=== PATIENT | female | born 1975 | race Caucasian/White ===

== ENCOUNTER 2016-09-18 15:19 | Emergency (ER) | payer MEDICARE, MEDICAID ==
[2016-09-18 15:36] VITALS: BP 129/71
--- NOTE | 2016-09-18 16:03 | EDM.PDOC ---
ED HPI GENERAL MEDICAL PROBLEM - General Chief Complaint: General Stated Complaint: INFECTION IN MOUTH Time Seen by Provider: 09/18/16 15:40 Source of Information: Reports: Patient History Limitations: Reports: No limitations - History of Present Illness INITIAL COMMENTS - FREE TEXT/NARRATIVE: Bella lost a portion of a R lower molar about a month ago, and now has experienced progressive swelling and pain of the R mandible over the past week. She has tried analgesics without benefit. Apparently her insurance limits access to a DDS in this geographic area. Right Lower Oral/Mouth Pain Score (Numeric/FACES): 7 - Related Data Allergies Allergy/AdvReac Type Severity Reaction Status Date / Time amitriptyline Allergy Other Verified 09/18/16 15:37 cefuroxime axetil Allergy Other Verified 09/18/16 15:37 [From Ceftin] lidocaine Allergy Other Verified 09/18/16 15:37 morphine Allergy Other Verified 09/18/16 15:37 prochlorperazine Allergy Other Verified 09/18/16 15:37 [From Compazine] prochlorperazine edisylate Allergy Other Verified 09/18/16 15:37 [From Compazine] prochlorperazine maleate Allergy Other Verified 09/18/16 15:37 [From Compazine] Home Meds: Home Meds Prazosin [Minpress] 3 mg PO DAILY 04/18/16 [History] lamoTRIgine [lamoTRIgine] 200 mg PO DAILY 04/18/16 [History] Clindamycin HCl 150 mg PO QID #20 capsule 09/18/16 [Rx] traMADol [Ultram] 50 mg PO Q4H PRN #20 tab 09/18/16 [Rx] Past Medical History HEENT History: Reports: Impaired vision Other HEENT History: wears glasses 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: , Other (see below) Other OB/BYN History: total historectomy Neurological History: Reports: Headaches, chronic, Migraines Psychiatric History: Reports: Anxiety, Depression, PTSD Dermatologic History: Reports: Psoriasis - Infectious Disease History Infectious Disease History: Reports: Chicken pox - Past Surgical History GI Surgical History: Reports: Appendectomy, Bariatric procedure, Cholecystectomy , Other (see below) Other GI Surgeries/Procedures: ruptured ulcer has had 5 feeding tubes in past Female Surgical History: Reports: Hysterectomy Social & Family History - Family History Family Medical History: Noncontributory - Tobacco Use Smoking Status *Q: Current Every Day Smoker Years of Tobacco use: 30 Packs/Tins Daily: 0.5 Used Tobacco, but Quit: No Second Hand Smoke Exposure: Yes - Caffeine Use Caffeine Use: Reports: Coffee, Soda - Recreational Drug Use Recreational Drug Use: No ED ROS GENERAL - Review of Systems Review Of Systems: See Below Constitutional: Reports: decreased appetite HEENT: Reports: Dental pain Respiratory: Reports: No Symptoms Cardiovascular: Reports: No symptoms Endocrine: Reports: no symptoms GI/Abdominal: Reports: No symptoms Musculoskeletal: Reports: no symptoms Skin: Reports: no symptoms Neurological: Reports: No Symptoms Psychiatric: Reports: No symptoms Hematologic/Lymphatic: Reports: no symptoms Immunologic: Reports: no symptoms ED EXAM, GENERAL - Physical Exam Exam: See Below Exam Limited By: No limitations General Appearance: alert, WD/WN, moderate distress Eye Exam: bilateral eye: normal inspection, PERRL Ears: normal external exam Nose: normal inspection Throat/Mouth: Normal inspection, Normal lips, Normal oropharynx, Normal voice, Other (swelling of #30 with fractured molar) Head: normocephalic, facial swelling (R mandibular swelling and tenderness) Neck: supple, full range of motion, tender lateral (right) Respiratory/Chest: lungs clear Cardiovascular: regular rate, rhythm Back Exam: normal inspection Extremities: normal inspection Neurological: alert, oriented, CN II-XII intact, normal gait Psychiatric: normal affect, normal mood Skin Exam: Warm, Dry Lymphatic: no adenopathy Course - Vital Signs Text/Narrative:: Bella remained stable at the [facility] ED. Last Recorded V/S: Last Vital Signs Temp 36.8 C 09/18/16 15:30 Pulse 95 09/18/16 15:30 Resp 14 09/18/16 15:30 BP 129/71 09/18/16 15:30 Pulse Ox 97 09/18/16 15:30 Departure - Departure Time of Disposition: 16:00 Disposition: Home, Self-Care 01 Condition: fair Clinical Impression: Infected dental caries - Discharge Information Prescriptions: Clindamycin HCl 150 mg PO QID #20 capsule traMADol [Ultram] 50 mg PO Q4H PRN #20 tab PRN Reason: Breakthrough Pain Forms: ED Department Discharge - Problem List & Annotations (1) Infected dental caries SNOMED Code(s): 79578507 Code(s): K02.9 - DENTAL CARIES, UNSPECIFIED; K04.7 - PERIAPICAL ABSCESS WITHOUT SINUS Status: Acute Annotation/Comment:: Infected fractured molar. I dispensed clindamycin 150 mg qid and Tramadol 50 mg q 4hr prn for pain. She needs DDS. - Problem List Review Problem List Initiated/Reviewed/Updated: Yes - Assessment/Plan Plan: Follow up with DDS.
== END 2016-09-18 15:57 | disposition home or self-care (01) ==
LOC: FB.ED 15:19
DX: K02.9 Dental caries, unspecified (principal); F17.210 Nicotine dependence, cigarettes, uncomplicated; F41.9 Anxiety disorder, unspecified; F32.9 Major depressive disorder, single episode, unspecified; L40.9 Psoriasis, unspecified; Z90.49 Acquired absence of other specified parts of digestive tract; Z88.6 Allergy status to analgesic agent; Z88.8 Allergy status to other drugs, medicaments and biological substances; Z79.899 Other long term (current) drug therapy
CPT/HCPCS: 99282; 99283

== ENCOUNTER 2016-11-25 11:19 | Emergency (ER) | payer MEDICARE, MEDICAID ==
[2016-11-25] MEDS ORDERED: Sodium Chloride 0.9% 10 ML Syringe FLUSH PRN (11:38)
[2016-11-25] MEDS ORDERED: Aspirin 81 MG Tab.Chew PO ONE (11:40)
--- NOTE | 2016-11-25 11:46 | EDM.PDOC ---
ED HPI GENERAL MEDICAL PROBLEM - General Chief Complaint: Neuro Symptoms/Deficits Stated Complaint: STROKE Time Seen by Provider: 11/25/16 11:30 Source of Information: Reports: Patient, Old Records History Limitations: Reports: No Limitations - History of Present Illness INITIAL COMMENTS - FREE TEXT/NARRATIVE: 41 yo female 1/2 ppd smoker for over 20 yrs presents on referral from one of the local clinics for L facial and arm numbness as well as inability to extend the left wrist since about 5 pm yesterday. Says she fell asleep in the car and when she awoke she had her current condition and it has not changed since then. Initially thought she had just slept on it wrong, but when it was no better today presented to the clinic. States has no BP, cholesterol or family hx of problems such as CVA. No hx of Afib. No KAMINSKI. Was transiently confused when she awoke from sleeping in the car yesterday. 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 No facial droop or slurred speech. L side of tongue is numb. 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) (none) - Related Data Allergies Allergy/AdvReac Type Severity Reaction Status Date / Time amitriptyline Allergy Other Verified 11/25/16 11:33 cefuroxime axetil Allergy Other Verified 11/25/16 11:33 [From Ceftin] lidocaine Allergy Other Verified 11/25/16 11:33 morphine Allergy Other Verified 11/25/16 11:33 prochlorperazine Allergy Other Verified 11/25/16 11:33 [From Compazine] prochlorperazine edisylate Allergy Other Verified 11/25/16 11:33 [From Compazine] prochlorperazine maleate Allergy Other Verified 11/25/16 11:33 [From Compazine] Home Meds: Home Meds Prazosin [Minpress] 3 mg PO BEDTIME 12/08/16 [History] lamoTRIgine [lamoTRIgine] 200 mg PO BEDTIME 04/18/16 [History] Gabapentin [Neurontin] 600 mg PO BID 11/25/16 [History] OLANZapine [ZyPREXA] 20 mg PO BEDTIME 11/25/16 [History] Ondansetron [Zofran] 4 mg PO Q8H PRN 11/25/16 [History] QUEtiapine [SEROquel] 400 mg PO BEDTIME 11/25/16 [History] SUMAtriptan [Imitrex] 0.5 ml SQ DAILY PRN 11/25/16 [History] Topiramate 200 mg PO BEDTIME 11/25/16 [History] busPIRone [Buspar] 30 mg PO BID 11/25/16 [History] Past Medical History HEENT History: Reports: Impaired Vision Other HEENT History: wears glasses 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: , Other (See Below) Other OB/BYN History: total historectomy Neurological History: Reports: Headaches, Chronic, Migraines Psychiatric History: Reports: Anxiety, Depression, PTSD Dermatologic History: Reports: Psoriasis - Infectious Disease History Infectious Disease History: Reports: Chicken Pox - Past Surgical History GI Surgical History: Reports: Appendectomy, Bariatric Procedure, Cholecystectomy , Other (See Below) Social & Family History - Family History Family Medical History: Noncontributory - Tobacco Use Smoking Status *Q: Current Every Day Smoker Years of Tobacco use: 30 Packs/Tins Daily: 0.5 Used Tobacco, but Quit: No Second Hand Smoke Exposure: Yes - Caffeine Use Caffeine Use: Reports: Coffee, Soda - Recreational Drug Use Recreational Drug Use: No ED ROS GENERAL - Review of Systems Review Of Systems: See Below Constitutional: Reports: No Symptoms HEENT: Reports: No Symptoms Respiratory: Reports: No Symptoms Cardiovascular: Reports: No Symptoms Endocrine: Reports: No Symptoms GI/Abdominal: Reports: No Symptoms : Reports: No Symptoms Musculoskeletal: Reports: No Symptoms Skin: Reports: No Symptoms Neurological: Reports: Confusion (transiently yesterday. ), Numbness (L cheek, L side of tongue, L arm), Weakness (unable to extend at the L wrist.). Denies: Dizziness, Headache, Trouble Speaking, Difficulty Walking Psychiatric: Reports: No Symptoms ED EXAM, NEURO - Physical Exam Exam: See Below Exam Limited By: No Limitations General Appearance: Alert, WD/WN, No Apparent Distress Eye Exam: Bilateral Eye: EOMI, Normal Inspection, PERRL Ears: Normal External Exam, Normal Canal, Hearing Grossly Normal Nose: Normal Inspection, Normal Mucosa, No Blood Throat/Mouth: Normal Inspection, Normal Lips, Normal Oropharynx, Normal Voice, No Airway Compromise Head Exam: Atraumatic, Normocephalic Neck: Normal Inspection, Supple, Other (No carotid bruits) Respiratory/Chest: No Respiratory Distress, Lungs Clear, Normal Breath Sounds, No Accessory Muscle Use Cardiovascular: Regular Rate, Rhythm, No Murmur GI/Abdominal: Soft, Non-Tender Neurological: Alert, Oriented x 3, Other (Subjective numbness of the L side of her face and L arm. Unable to extend at L wrist. 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 Payne) @ 1305h If MRI is negative may need OT referral and/or EMG regarding L hand/wrist dysfunction. Last Recorded V/S: Last Vital Signs Temp 36.7 C 11/25/16 12:11 Pulse 78 11/25/16 13:00 Resp 12 11/25/16 13:00 BP 119/79 11/25/16 13:00 Pulse Ox 100 11/25/16 13:00 - Orders/Labs/Meds Orders: Active Orders 24 hr Category Date Time Status Cardiac Monitoring [RC] .As Directed Care 11/25/16 11:39 Active Brain w wo Cont [MR] Stat Exams 11/25/16 13:11 Taken Head wo Cont [CT] Stat Exams 11/25/16 11:38 Taken Gadobutrol [Gadavist] Med 11/25/16 14:00 Active 10 ml IV . DIRECTED Sodium Chloride 0.9% [Saline Flush] Med 11/25/16 11:38 Active 10 ml FLUSH ASDIRECTED PRN Saline Lock Insert [OM.PC] Routine Oth 11/25/16 11:38 Ordered Medication Orders Gadobutrol (Gadavist) 10 ml IV . DIRECTED [facility] Last Admin: 11/25/16 14:36 Dose: 9 ml Sodium Chloride (Saline Flush) 10 ml FLUSH ASDIRECTED PRN PRN Reason: Keep Vein Open Last Admin: 11/25/16 12:14 Dose: 10 ml Labs: Laboratory Tests 11/25/16 11/25/16 11/25/16 Range/Units 12:00 12:00 12:00 WBC 7.1 (4.5-12.0) X10-3/uL RBC 4.23 (3.23-5.20) x10(6)uL Hgb 11.8 (11.5-15.5) g/dL Hct 35.9 (30.0-51.3) % MCV 84.9 (80-96) fL MCH 27.9 (27.7-33.6) pg MCHC 32.8 (32.2-35.4) g/dL RDW 14.1 (11.5-15.5) % Plt Count 280 (125-369) X10(3)uL Sodium 140 (135-145) mmol/L Potassium 3.7 (3.5-5.3) mmol/L Chloride 112 H (100-110) mmol/L Carbon Dioxide 21 L (23-29) mmol/L BUN 12 (5-20) mg/dL Creatinine 0.7 (0.6-1.3) mg/dL Est Cr Clr Drug Dosing 109.41 mL/min Estimated GFR (MDRD) > 60 (>60) BUN/Creatinine Ratio 17.1 (9-20) Glucose 98 (80-116) mg/dL Calcium 9.3 (8.6-10.2) mg/dL Troponin I < 0.01 L (0.02-0.06) NG/ML Urine Color (YELLOW) Urine Appearance (CLEAR) Urine pH (5.0-6.5) Ur Specific Earle (1.010-1.025) Urine Protein (NEGATIVE) mg/dL Urine Glucose (UA) (NEGATIVE) mg/dL Urine Ketones (NEGATIVE) mg/dL Urine Occult Blood (NEGATIVE) Urine Nitrite (NEGATIVE) Urine Bilirubin (NEGATIVE) Urine Urobilinogen (NEGATIVE) mg/dL Ur Leukocyte Esterase (NEGATIVE) Urine RBC (0) Urine WBC (0) Ur Squamous Epith Cells (NS,R,O) Urine Bacteria (NS) 11/25/16 Range/Units 12:40 WBC (4.5-12.0) X10-3/uL RBC (3.23-5.20) x10(6)uL Hgb (11.5-15.5) g/dL Hct (30.0-51.3) % MCV (80-96) fL MCH (27.7-33.6) pg MCHC (32.2-35.4) g/dL RDW (11.5-15.5) % Plt Count (125-369) X10(3)uL Sodium (135-145) mmol/L Potassium (3.5-5.3) mmol/L Chloride (100-110) mmol/L Carbon Dioxide (23-29) mmol/L BUN (5-20) mg/dL Creatinine (0.6-1.3) mg/dL Est Cr Clr Drug Dosing mL/min Estimated GFR (MDRD) (>60) BUN/Creatinine Ratio (9-20) Glucose (80-116) mg/dL Calcium (8.6-10.2) mg/dL Troponin I (0.02-0.06) NG/ML Urine Color Yellow (YELLOW) Urine Appearance Clear (CLEAR) Urine pH 8.0 H (5.0-6.5) Ur Specific Earle 1.010 (1.010-1.025) Urine Protein Negative (NEGATIVE) mg/dL Urine Glucose (UA) Normal (NEGATIVE) mg/dL Urine Ketones Negative (NEGATIVE) mg/dL Urine Occult Blood Negative (NEGATIVE) Urine Nitrite Negative (NEGATIVE) Urine Bilirubin Negative (NEGATIVE) Urine Urobilinogen Normal (NEGATIVE) mg/dL Ur Leukocyte Esterase Negative (NEGATIVE) Urine RBC 0-5 (0) Urine WBC 0-5 (0) Ur Squamous Epith Cells Moderate H (NS,R,O) Urine Bacteria Few H (NS) Meds: Medications Generic Name Dose Route Start Last Admin Trade Name Freq PRN Reason Stop Dose Admin Gadobutrol 10 ml 11/25/16 14:00 11/25/16 14:36 Gadavist IV 9 ml . DIRECTED MEHRAN Administration Sodium Chloride 10 ml 11/25/16 11:38 11/25/16 12:14 Saline Flush FLUSH 10 ml ASDIRECTED PRN Administration Keep Vein Open Discontinued Medications Generic Name Dose Route Start Last Admin Trade Name Reyes PRN Reason Stop Dose Admin Aspirin 324 mg 11/25/16 11:40 11/25/16 11:52 Aspirin PO 11/25/16 11:41 324 mg ONETIME ONE Administration Departure - Departure Time of Disposition: 14:41 Disposition: Home, Self-Care 01 Condition: Fair Clinical Impression: Focal neurological deficit - Discharge Information Referrals: Rosmery Valverde PA-C [Primary Care Provider] - Forms: ED Department Discharge Care Plan Goals: NO SMOKING. Take an aspirin daily with a meal. Wear your wrist splint at all times except when bathing. Recheck in the clinic as soon as possible to review the results of your MRI and to plan the next step in your care. - My Orders Last 24 Hours: My Active Orders 11/25/16 11:38 Head wo Cont [CT] Stat Sodium Chloride 0.9% [Saline Flush] 10 ml FLUSH ASDIRECTED PRN Saline Lock Insert [OM.PC] Routine 11/25/16 11:39 Cardiac Monitoring [RC] .As Directed 11/25/16 13:11 Brain w wo Cont [MR] Stat 11/25/16 14:00 Gadobutrol [Gadavist] 10 ml IV . DIRECTED - Assessment/Plan Last 24 Hours: My Active Orders 11/25/16 11:38 Head wo Cont [CT] Stat Sodium Chloride 0.9% [Saline Flush] 10 ml FLUSH ASDIRECTED PRN Saline Lock Insert [OM.PC] Routine 11/25/16 11:39 Cardiac Monitoring [RC] .As Directed 11/25/16 13:11 Brain w wo Cont [MR] Stat 11/25/16 14:00 Gadobutrol [Gadavist] 10 ml IV . DIRECTED
[2016-11-25] MEDS ORDERED: Gadobutrol 10 mMOL/10 ML SDV IV SCH (14:00)
[2016-11-25 15:34] VITALS: BP 122/76
--- NOTE | 2016-11-25 16:35 | CT ---
INDICATION: Left arm and face numbness with loss of wrist extension. COMPARISON: None. CT HEAD: TECHNIQUE: Conventional CT head/brain submitted without contrast material administration. FINDINGS: Normal size and configuration of subarachnoid cisterns or ventricles. No focal mass effect, shift of midline structures, extraaxial fluid collections. Partially visualized moderate sized mucus retention cyst versus polyp posterior/ inferior left maxillary sinus. Mild right maxillary sinus mucoperiosteal thickening change. Moderate diffuse sclerosis throughout the right mastoid sinus as well. The remainder of the paranasal sinuses, orbits, and calvarium otherwise unremarkable. IMPRESSION: 1. No evidence of acute hemorrhage or mass effect in the brain. If clinical suspicion persists for otherwise occult cerebral or cerebellar ischemic pathology, then correlation with MRI of the brain would provide optimal evaluation. 2. Mild to moderate chronic sinusitis maxillary sinuses, left greater than right. MTDD
== END 2016-11-25 14:55 | disposition home or self-care (01) ==
LOC: FB.ED 11:19
DX: R29.818 Other symptoms and signs involving the nervous system (principal); H54.7 Unspecified visual loss; F41.9 Anxiety disorder, unspecified; F32.9 Major depressive disorder, single episode, unspecified; F17.210 Nicotine dependence, cigarettes, uncomplicated; Z90.49 Acquired absence of other specified parts of digestive tract; Z98.84 Bariatric surgery status; Z88.8 Allergy status to other drugs, medicaments and biological substances; Z88.5 Allergy status to narcotic agent; Z79.899 Other long term (current) drug therapy
CPT/HCPCS: 36415; 70450; 70553; 80048; 81001; 84484; 85027; 99284; A9270; A9585; J7050

== ENCOUNTER 2017-01-04 19:25 | Emergency (ER) | payer MEDICARE, MEDICAID ==
--- NOTE | 2017-01-04 21:04 | EDM.PDOC ---
ED HPI GENERAL MEDICAL PROBLEM - General Chief Complaint: Abdominal Pain Stated Complaint: LOWER ABDOMINAL PAIN Time Seen by Provider: 01/04/17 19:41 Source of Information: Reports: Patient History Limitations: Reports: No Limitations - History of Present Illness INITIAL COMMENTS - FREE TEXT/NARRATIVE: 41 years old w f come to the ed due to acute onset of pain at her LLQ of her abdomen with dysuria. No trauma, no constipation, hurts more when ambulating. Pt underwent GLORIA. Onset: Today Onset Date: 01/04/17 Onset Time: 07:00 Duration: Hour(s):, Intermittent Location: Reports: Abdomen Quality: Reports: Ache, Burning, Dull Severity: Moderate Improves with: Reports: Rest Context: Reports: Other (unknown) Associated Symptoms: Reports: No Other Symptoms Lower Abdominal Pain Score (Numeric/FACES): 8 - Related Data Allergies Allergy/AdvReac Type Severity Reaction Status Date / Time amitriptyline Allergy Other Verified 01/04/17 19:37 cefuroxime axetil Allergy Other Verified 01/04/17 19:37 [From Ceftin] lidocaine Allergy Other Verified 01/04/17 19:37 morphine Allergy Other Verified 01/04/17 19:37 prochlorperazine Allergy Other Verified 01/04/17 19:37 [From Compazine] prochlorperazine edisylate Allergy Other Verified 01/04/17 19:37 [From Compazine] prochlorperazine maleate Allergy Other Verified 01/04/17 19:37 [From Compazine] Home Meds: Home Meds Prazosin [Minpress] 3 mg PO BEDTIME 04/18/16 [History] lamoTRIgine [lamoTRIgine] 200 mg PO BEDTIME 04/18/16 [History] Gabapentin [Neurontin] 600 mg PO BID 11/25/16 [History] OLANZapine [ZyPREXA] 20 mg PO BEDTIME 11/25/16 [History] Ondansetron [Zofran] 4 mg PO Q8H PRN 11/25/16 [History] QUEtiapine [SEROquel] 400 mg PO BEDTIME 11/25/16 [History] SUMAtriptan [Imitrex] 0.5 ml SQ DAILY PRN 11/25/16 [History] Topiramate 200 mg PO BEDTIME 11/25/16 [History] busPIRone [Buspar] 30 mg PO BID 11/25/16 [History] Acetaminophen/HYDROcodone [[place] 325-5 MG] 1 - 2 tab PO Q6H PRN #12 tab [Rx] buPROPion HCl [Wellbutrin SR] 150 mg PO DAILY 01/04/17 [History] Past Medical History HEENT History: Reports: Impaired Vision Other HEENT History: wears glasses Gastrointestinal History: Reports: Other (See Below) Other Gastrointestinal History: IBS ulcers 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: , Other (See Below) Other OB/BYN History: total histerectomy Neurological History: Reports: Headaches, Chronic, Migraines Psychiatric History: Reports: Anxiety, Depression, PTSD Dermatologic History: Reports: Psoriasis - Infectious Disease History Infectious Disease History: Reports: Chicken Pox - Past Surgical History GI Surgical History: Reports: Appendectomy, Bariatric Procedure, Cholecystectomy , Other (See Below) Female Surgical History: Reports: Hysterectomy Social & Family History - Family History Family Medical History: Noncontributory - Tobacco Use Smoking Status *Q: Current Every Day Smoker Years of Tobacco use: 24 Packs/Tins Daily: 1 Used Tobacco, but Quit: No Second Hand Smoke Exposure: Yes - Caffeine Use Caffeine Use: Reports: Coffee - Recreational Drug Use Recreational Drug Use: Yes Recreational Drug Type: Reports: Marijuana/Hashish Recreational Drug Use Frequency: Socially Recreational Drug Last Use: 12/2016 ED ROS GENERAL - Review of Systems Review Of Systems: See Below Constitutional: Reports: No Symptoms HEENT: Reports: No Symptoms Respiratory: Reports: No Symptoms Cardiovascular: Reports: No Symptoms Endocrine: Reports: No Symptoms GI/Abdominal: Reports: Abdominal Pain (LLQ of abdomen) : Reports: No Symptoms Musculoskeletal: Reports: No Symptoms Skin: Reports: No Symptoms Neurological: Reports: No Symptoms Psychiatric: Reports: No Symptoms Hematologic/Lymphatic: Reports: No Symptoms Immunologic: Reports: No Symptoms ED EXAM, GI/ABD - Physical Exam Exam: See Below Exam Limited By: No Limitations General Appearance: Alert, WD/WN, Mild Distress Eyes: Bilateral: Normal Appearance Ears: Normal External Exam, Normal Canal Nose: Normal Inspection, Normal Mucosa Throat/Mouth: Normal Inspection, Normal Lips Head: Atraumatic, Normocephalic Neck: Normal Inspection, Supple, Non-Tender Respiratory/Chest: No Respiratory Distress, Lungs Clear, Normal Breath Sounds Cardiovascular: Normal Peripheral Pulses, Regular Rate, Rhythm GI/Abdominal Exam: No Distention, No Abnormal Bruit, No Mass, Pelvis Stable, Tender (LLQ of abdomen) (Female) Exam: Deferred Rectal (Female) Exam: Deferred Back Exam: Normal Inspection, Full Range of Motion Extremities: Normal Inspection, Normal Range of Motion, Non-Tender, No Pedal Edema Neurological: Alert, Oriented, CN II-XII Intact, Normal Cognition, Normal Gait, No Motor/Sensory Deficits Psychiatric: Normal Affect, Normal Mood Skin Exam: Warm, Dry, Intact, Normal Color, No Rash Lymphatic: No Adenopathy Course - Vital Signs Text/Narrative:: 41 years old w f come to the ed due to acute onset of pain at her LLQ of her abdomen with dysuria. No trauma, no constipation, hurts more when ambulating. Pt underwent GLORIA. PE: LLQ abd. pain, nl active BS Labs: CBC and BMP and UA nl Imaging: CT abd. pelvis: NAD Impression: Abd. pain, cause not determined Tx: Toradol Reexam: Improved Plan: D/C with instructions. Last Recorded V/S: Last Vital Signs Temp 36.6 C 01/04/17 19:41 Pulse 77 01/04/17 22:51 Resp 14 01/04/17 22:51 BP 104/80 01/04/17 22:51 Pulse Ox 100 01/04/17 22:51 - Orders/Labs/Meds Orders: Active Orders 24 hr Category Date Time Status Abdomen Pelvis w Cont [CT] Stat Exams 01/04/17 20:58 Taken Labs: Laboratory Tests 01/04/17 01/04/17 01/04/17 Range/Units 19:42 21:10 21:10 WBC 6.3 (4.5-12.0) X10-3/uL RBC 4.34 (3.23-5.20) x10(6)uL Hgb 11.8 (11.5-15.5) g/dL Hct 36.1 (30.0-51.3) % MCV 83.2 (80-96) fL MCH 27.1 L (27.7-33.6) pg MCHC 32.6 (32.2-35.4) g/dL RDW 14.8 (11.5-15.5) % Plt Count 278 (125-369) X10(3)uL MPV 8.5 (7.4-10.4) fL Neut % (Auto) 51.9 (46-82) % Lymph % (Auto) 34.6 (13-37) % Kaufman % (Auto) 9.2 (4-12) % Eos % (Auto) 4 (1.0-5.0) % Baso % (Auto) 1 (0-2) % Neut # (Auto) 3.3 (1.6-8.3) # Lymph # (Auto) 2.2 (0.6-5.0) # Kaufman # (Auto) 0.6 (0.0-1.3) # Eos # (Auto) 0.2 (0.0-0.8) # Baso # (Auto) 0.0 (0.0-0.2) # PT 9.9 (8.7-11.1) INR 0.98 (0.89-1.13) Sodium (135-145) mmol/L Potassium (3.5-5.3) mmol/L Chloride (100-110) mmol/L Carbon Dioxide (23-29) mmol/L BUN (5-20) mg/dL Creatinine (0.6-1.3) mg/dL Est Cr Clr Drug Dosing mL/min Estimated GFR (MDRD) (>60) BUN/Creatinine Ratio (9-20) Glucose (80-116) mg/dL Calcium (8.6-10.2) mg/dL Urine Color Yellow (YELLOW) Urine Appearance Clear (CLEAR) Urine pH 6.0 (5.0-6.5) Ur Specific [place] 1.015 (1.010-1.025) Urine Protein Negative (NEGATIVE) mg/dL Urine Glucose (UA) Normal (NEGATIVE) mg/dL Urine Ketones Negative (NEGATIVE) mg/dL Urine Occult Blood Negative (NEGATIVE) Urine Nitrite Negative (NEGATIVE) Urine Bilirubin Negative (NEGATIVE) Urine Urobilinogen Normal (NEGATIVE) mg/dL Ur Leukocyte Esterase Negative (NEGATIVE) Urine RBC 0-5 (0) Urine WBC 0-5 (0) Ur Squamous Epith Cells Moderate H (NS,R,O) Urine Bacteria Few H (NS) 01/04/ Range/Units 21:10 WBC (4.5-12.0) X10-3/uL RBC (3.23-5.20) x10(6)uL Hgb (11.5-15.5) g/dL Hct (30.0-51.3) % MCV (80-96) fL MCH (27.7-33.6) pg MCHC (32.2-35.4) g/dL RDW (11.5-15.5) % Plt Count (125-369) X10(3)uL MPV (7.4-10.4) fL Neut % (Auto) (46-82) % Lymph % (Auto) (13-37) % Kaufman % (Auto) (4-12) % Eos % (Auto) (1.0-5.0) % Baso % (Auto) (0-2) % Neut # (Auto) (1.6-8.3) # Lymph # (Auto) (0.6-5.0) # Kaufman # (Auto) (0.0-1.3) # Eos # (Auto) (0.0-0.8) # Baso # (Auto) (0.0-0.2) # PT (8.7-11.1) INR (0.89-1.13) Sodium 141 (135-145) mmol/L Potassium 3.5 (3.5-5.3) mmol/L Chloride 111 H (100-110) mmol/L Carbon Dioxide 23 (23-29) mmol/L BUN 10 (5-20) mg/dL Creatinine 0.9 (0.6-1.3) mg/dL Est Cr Clr Drug Dosing 82.14 mL/min Estimated GFR (MDRD) > 60 (>60) BUN/Creatinine Ratio 11.1 (9-20) Glucose 97 (80-116) mg/dL Calcium 9.1 (8.6-10.2) mg/dL Urine Color (YELLOW) Urine Appearance (CLEAR) Urine pH (5.0-6.5) Ur Specific [place] (1.010-1.025) Urine Protein (NEGATIVE) mg/dL Urine Glucose (UA) (NEGATIVE) mg/dL Urine Ketones (NEGATIVE) mg/dL Urine Occult Blood (NEGATIVE) Urine Nitrite (NEGATIVE) Urine Bilirubin (NEGATIVE) Urine Urobilinogen (NEGATIVE) mg/dL Ur Leukocyte Esterase (NEGATIVE) Urine RBC (0) Urine WBC (0) Ur Squamous Epith Cells (NS,R,O) Urine Bacteria (NS) Meds: Medications Discontinued Medications Generic Name Dose Route Start Last Admin Trade Name Reyes PRN Reason Stop Dose Admin Iopamidol 100 ml 01/04/17 21:45 01/04/17 23:03 Isovue-370 (76%) IV 01/04/17 21:46 100 ml . DIRECTED ONE Administration Ketorolac Tromethamine 30 mg 01/04/17 23:28 01/04/17 23:34 Toradol IVPUSH 01/04/17 23:29 30 mg ONETIME ONE Administration Departure - Departure Time of Disposition: 23:53 Disposition: Home, Self-Care 01 Condition: Good Clinical Impression: Abdominal pain, acute, left lower quadrant - Discharge Information Prescriptions: Acetaminophen/HYDROcodone [[place] 325-5 MG] 1 - 2 tab PO Q6H PRN #12 tab PRN Reason: for severe pain only Referrals: Rosmery Valverde PA-C [Primary Care Provider] - Forms: ED Department Discharge Additional Instructions: no cause of your abdominal pain could be found. Please take norco for severe pain, please f/u with your PMD. Please came to the ed if your symptoms get worse acutely - My Orders Last 24 Hours: My Active Orders 01/04/17 20:58 Abdomen Pelvis w Cont [CT] Stat - Assessment/Plan Last 24 Hours: My Active Orders 01/04/17 20:58 Abdomen Pelvis w Cont [CT] Stat
[2017-01-04] MEDS ORDERED: Iopamidol 755 Mg/ML 100 ML Bottle IV ONE (21:45)
[2017-01-04 22:52] VITALS: BP 104/80
[2017-01-04] MEDS ORDERED: Ketorolac 30 MG/ML SDV IVPUSH ONE (23:28)
== END 2017-01-05 00:05 | disposition home or self-care (01) ==
LOC: FB.ED 19:25
DX: R10.32 Left lower quadrant pain (principal); G43.909 Migraine, unspecified, not intractable, without status migrainosus; F32.9 Major depressive disorder, single episode, unspecified; F17.210 Nicotine dependence, cigarettes, uncomplicated; F41.9 Anxiety disorder, unspecified; Z90.710 Acquired absence of both cervix and uterus; Z90.49 Acquired absence of other specified parts of digestive tract; Z90.89 Acquired absence of other organs; Z88.6 Allergy status to analgesic agent; Z88.8 Allergy status to other drugs, medicaments and biological substances; Z79.899 Other long term (current) drug therapy
CPT/HCPCS: 36415; 74177; 80048; 81001; 85025; 85610; 96374; 99284; J1885; Q9967; 99283

== ENCOUNTER 2018-04-30 19:27 | Emergency (ER) | payer MEDICAID, MEDICARE, SELFPAY ==
[2018-04-30] MEDS ORDERED: Amoxicillin/Clavulanate K 875-125 MG Tab PO ONE (20:26)
[2018-04-30] MEDS ORDERED: Diphtheria,Pertussis(Acell),Tetanus Vaccine 0.5 ML SDV IM ONE (20:33)
--- NOTE | 2018-04-30 20:33 | EDM.PDOC ---
ED HPI GENERAL MEDICAL PROBLEM - General Chief Complaint: Bite:Animal, Insect Stated Complaint: DOG BITE Time Seen by Provider: 04/30/18 19:40 Source of Information: Reports: Patient History Limitations: Reports: No Limitations - History of Present Illness INITIAL COMMENTS - FREE TEXT/NARRATIVE: This pleasant 43-year-old with history of migraine, anxiety attacks, depression , psoriasis and PTSD (for which uses prazosin) this evening after having been bitten last hour by her Pit bulldog. Was caring for her sounds dark and that dog got in a fight with her dog. Patient has a multiple bite lacerations of her non dominant left hand as she tried to tried to remove her fighting [facility] Pain Score (Numeric/FACES): 8 - Related Data Allergies Allergy/AdvReac Type Severity Reaction Status Date / Time amitriptyline Allergy Other Verified 04/30/18 19:44 cefuroxime axetil Allergy Other Verified 04/30/18 19:44 [From Ceftin] lidocaine Allergy Other Verified 04/30/18 19:44 morphine Allergy Other Verified 04/30/18 19:44 prochlorperazine Allergy Other Verified 04/30/18 19:44 [From Compazine] prochlorperazine edisylate Allergy Other Verified 04/30/18 19:44 [From Compazine] prochlorperazine maleate Allergy Other Verified 04/30/18 19:44 [From Compazine] Home Meds: Home Meds Prazosin [Minpress] 3 mg PO BEDTIME 04/18/16 [History] lamoTRIgine 200 mg PO BEDTIME 04/18/16 [History] Gabapentin [Neurontin] 600 mg PO BID 11/25/16 [History] OLANZapine [ZyPREXA] 20 mg PO BEDTIME 11/25/16 [History] Ondansetron [Zofran] 4 mg PO Q8H PRN 11/25/16 [History] QUEtiapine [SEROquel] 400 mg PO BEDTIME 11/25/16 [History] SUMAtriptan [Imitrex] 0.5 ml SQ DAILY PRN 11/25/16 [History] Topiramate 200 mg PO BEDTIME 11/25/16 [History] busPIRone [Buspar] 30 mg PO BID 07/17/17 [History] buPROPion HCl [Wellbutrin SR] 150 mg PO DAILY 01/04/17 [History] ALPRAZolam [Xanax] 1 mg PO TID 04/30/18 [History] Amoxicillin/Clavulanate K [Augmentin 875-125 MG] 1 tab PO BID #20 tablet [Rx] Past Medical History HEENT History: Reports: Impaired Vision Other HEENT History: wears glasses Gastrointestinal History: Reports: Other (See Below) Other Gastrointestinal History: IBS ulcers 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: , 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 (See Below) 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 Neurological History: Reports: Headaches, Chronic, Migraines Psychiatric History: Reports: Anxiety, Depression, PTSD Dermatologic History: Reports: Psoriasis - Infectious Disease History Infectious Disease History: Reports: Chicken Pox - Past Surgical History GI Surgical History: Reports: Appendectomy, Bariatric Procedure, Cholecystectomy , Other (See Below) Female Surgical History: Reports: Hysterectomy Social & Family History - Family History Family Medical History: Noncontributory - Tobacco Use Smoking Status *Q: Current Every Day Smoker Years of Tobacco use: 26 Packs/Tins Daily: 1 - Caffeine Use Caffeine Use: Reports: Coffee - Recreational Drug Use Recreational Drug Use: No ED ROS GENERAL - Review of Systems Review Of Systems: ROS reveals no pertinent complaints other than HPI. ED EXAM, ANIMAL BITE - Physical Exam Exam: See Below Text/Narrative:: Patient is mildly uncomfortable with the [place] bites on her left nondominant hand involving the thenar eminence and dorsum of the proximal first metacarpal Exam Limited By: No Limitations General Appearance: Alert, WD/WN, Mild Distress, Moderate Distress Eye Exam: Bilateral Eye: Normal Inspection Ears: Normal External Exam, Normal Canal Nose: Normal Inspection, Normal Mucosa Throat/Mouth: Normal Inspection, Normal Lips, Normal Teeth, Normal Gums, Normal Oropharynx, Normal Voice Head: Atraumatic, Normocephalic Neck: Normal Inspection, Supple, Non-Tender, Full Range of Motion Respiratory/Chest: No Respiratory Distress, Lungs Clear, Normal Breath Sounds, No Accessory Muscle Use, Chest Non-Tender Cardiovascular: Normal Peripheral Pulses, Regular Rate, Rhythm, No Edema, No Gallop, No JVD, No Murmur, No Rub Peripheral Pulses: 1+: Brachial (L) (Normal capillary fill of fingers), Brachial (R) GI/Abdominal: Normal Bowel Sounds, Soft, Non-Tender, No Organomegaly, No Distention, No Abnormal Bruit, No Mass (Female) Exam: Deferred Rectal (Female) Exam: Deferred Extremities: Normal Inspection, Other ( left hand thenar eminence puncture wounds noted. Also multiple bite prabhakar dorsal first metacarpal dermis of the hand. The thenar bites have penetrated through the dermis. The multiple Dorsal bites of the first metacarpal are very superficial. The thenar eminence is moderately swollen and markedly tender to the touch. No linear angitis. No compromise ulnar or radial pulse. No compromise range of motion of fingers.) Neurological: Alert, Oriented, CN II-XII Intact, Normal Cognition, Normal Gait, Normal Reflexes, No Motor/Sensory Deficits Psychiatric: Normal Affect Skin Exam: Normal Color, Warm/Dry Lymphatic: No Adenopathy Course - Vital Signs Last Recorded V/S: Last Vital Signs Temp 36.6 C 04/30/18 19:27 Pulse 89 04/30/18 19:27 Resp 18 04/30/18 19:27 BP 125/69 04/30/18 19:27 Pulse Ox 99 04/30/18 19:27 - Orders/Labs/Meds Orders: Active Orders 24 hr Category Date Time Status Vaccines to be Administered [RC] PER UNIT ROUTINE Care 04/30/18 20:33 Active Meds: Medications Discontinued Medications Generic Name Dose Route Start Last Admin Trade Name Freq PRN Reason Stop Dose Admin Amoxicillin/Clavulanate Potassium 1 tab 04/30/18 20:26 04/30/18 20:43 Augmentin 875 Mg/125 Mg PO 04/30/18 20:27 1 tab ONETIME ONE Administration Diphtheria/Tetanus/Acell Pertussis 0.5 ml 04/30/18 20:33 04/30/18 20:43 Adacel IM 04/30/18 20:34 0.5 ml .ONCE ONE Administration Departure - Departure Time of Disposition: 20:00 (Symptoms multiple dog bite teeth entries her left thenar eminence and left dorsum of her hand. She has dysesthesia of the left thenar eminence left index and long finger. Most of the dysesthesia and is most notable the left thumb tip approximately 1 cm x 3 mm.) Disposition: Home, Self-Care 01 Condition: Good Clinical Impression: Dog bite of extremity, Anxiety, Psoriasis Depression Qualifiers: Depression Type: dysthymia Qualified Code(s): F34.1 - Dysthymic disorder - Discharge Information *PRESCRIPTION DRUG MONITORING PROGRAM REVIEWED*: Not Applicable *COPY OF PRESCRIPTION DRUG MONITORING REPORT IN PATIENT ANIBAL: Not Applicable Prescriptions: Amoxicillin/Clavulanate K [Augmentin 875-125 MG] 1 tab PO BID #20 tablet Instructions: Animal Bite, [id number], Amoxicillin; Clavulanic Acid oral suspension Referrals: Rosmery Valverde PA-C [Primary Care Provider] - Forms: ED Department Discharge Additional Instructions: dx dog bite with sensory nerve injury from the crush effect of gthe pit bull bite on your left hand with early suggestion of sensory irritation of the median nerve branch to the left thumb tip, left index and long finger at present there is no suggestion of infection treat potential infection with Augmentin 875 mg twice a day for 10 days use cold pack to decrease the swelling follow up with your MD 1 week earlier if worse elevate your hand above your heart to decrease the swelling - My Orders Last 24 Hours: My Active Orders 04/30/18 20:33 Vaccines to be Administered [RC] PER UNIT ROUTINE - Assessment/Plan Last 24 Hours: My Active Orders 04/30/18 20:33 Vaccines to be Administered [RC] PER UNIT ROUTINE
[2018-04-30 21:46] VITALS: BP 112/76
== END 2018-04-30 21:03 | disposition home or self-care (01) ==
LOC: FB.ED 19:27
DX: S61.452A Open bite of left hand, initial encounter (principal); S61.432A Puncture wound without foreign body of left hand, initial encounter; F34.1 Dysthymic disorder; F41.9 Anxiety disorder, unspecified; L40.9 Psoriasis, unspecified; Z88.1 Allergy status to other antibiotic agents; Z88.8 Allergy status to other drugs, medicaments and biological substances; Z88.5 Allergy status to narcotic agent; Z23 Encounter for immunization; F17.210 Nicotine dependence, cigarettes, uncomplicated; W54.0XXA Bitten by dog, initial encounter
CPT/HCPCS: 90471; 90715; 99283; A9270; 90472

== ENCOUNTER 2018-10-28 08:08 | Day surgery (SDC) | payer MEDICARE ==
[2018-10-28] MEDS ORDERED: Midazolam 1 MG/ML 2 ML SDV IV ONE (08:09)
[2018-10-28] MEDS ORDERED: Propofol 200 MG/20 ML SDV IV ONE (08:09)
[2018-10-28] MEDS ORDERED: Lidocaine 2% 100 MG/5 ML Syringe IVPUSH ONE (08:09)
[2018-10-28] MEDS ORDERED: Lactated Ringers 1,000 ML IV SCH (08:30)
--- NOTE | 2018-10-28 09:57 | PCM.OPNOTE ---
- General Post-Op/Procedure Note Date of Surgery/Procedure: 10/28/18 Operative Procedure(s): egd with bx Findings: gastric pouch inflammation Pre Op Diagnosis: epigastric pain Post-Op Diagnosis: pouchitis Anesthesia Technique: TERE Primary Surgeon: Akash Kang Anesthesia Provider: Jeniffer Jones Pathology: gastric pouch Complications: None Condition: Good Free Text/Narrative:: see egd
[2018-10-28 10:28] VITALS: BP 110/76
--- NOTE | 2018-10-28 11:36 | OR ---
DATE OF OPERATION: 10/28/2018 SURGEON: Akash Kang MD PROCEDURE PERFORMED: Esophagogastroduodenoscopy with cold forceps biopsy. PREOPERATIVE DIAGNOSIS: Epigastric abdominal pain. POSTOPERATIVE DIAGNOSIS: Pouchitis. INDICATIONS FOR PROCEDURE: This is a 43-year-old white female who is status post a gastrojejunostomy for morbid obesity, has a history of epigastric abdominal pain, has a history of ulcerations in the past. She was offered and accepted an esophagogastroduodenoscopy. DESCRIPTION OF OPERATION: After an excellent sedation was administered, the bite block was inserted. The flexible endoscope was passed without difficulty down the patient's esophagus and into the gastric pouch. Gastric pouch was insufflated and the gastric pouch and jejunum were inspected. The following findings were noted. The jejunum was unremarkable. In the area, however, of the anastomosis, there was some inflammation. Biopsies were taken. There was also some evidence of inflammation in the pouch itself and biopsies were taken. The esophagus was unremarkable. The patient tolerated the procedure well and was taken to recovery. Results by letter. /[id number] /MODL
== END 2018-10-28 10:23 | disposition home or self-care (01) ==
LOC: FB.SDS 08:08
PROVIDERS: ATTEND Surgery
DX: K95.89 Other complications of other bariatric procedure (principal); K21.9 Gastro-esophageal reflux disease without esophagitis; D50.9 Iron deficiency anemia, unspecified; G43.909 Migraine, unspecified, not intractable, without status migrainosus; F33.9 Major depressive disorder, recurrent, unspecified; F41.9 Anxiety disorder, unspecified; M19.90 Unspecified osteoarthritis, unspecified site; F17.210 Nicotine dependence, cigarettes, uncomplicated; E66.9 Obesity, unspecified; Z68.34 Body mass index [BMI] 34.0-34.9, adult; Z79.899 Other long term (current) drug therapy; Z88.4 Allergy status to anesthetic agent; Z88.1 Allergy status to other antibiotic agents; Z88.5 Allergy status to narcotic agent; Z88.8 Allergy status to other drugs, medicaments and biological substances; Z98.890 Other specified postprocedural states
CPT/HCPCS: 00731-QZ; 88305; 88342; J2001; J2250; J2704; J7120

== ENCOUNTER 2018-12-16 17:56 | Emergency (ER) | payer MEDICARE ==
[2018-12-16] MEDS ORDERED: Ondansetron 4 MG/2 ML SDV IVPUSH ONE (18:03)
[2018-12-16] MEDS ORDERED: Ketorolac 30 MG/ML SDV IVPUSH ONE (18:03)
[2018-12-16] MEDS: Sodium Chloride 0.9% 10 ML Syringe FLUSH PRN ×2 (18:15→19:50)
[2018-12-16 18:40] VITALS: BP 128/84; PULSE 90
[2018-12-16] MEDS ORDERED: Metoclopramide 10 MG/2 ML SDV IVPUSH ONE (19:41)
[2018-12-16] MEDS ORDERED: SUMAtriptan 6 MG/0.5 ML SDV SUBCUT ONE (19:41)
--- NOTE | 2018-12-16 19:43 | EDM.PDOC ---
ED HPI GENERAL MEDICAL PROBLEM - General Chief Complaint: General Stated Complaint: SIDE PAIN, MIGRAINE Time Seen by Provider: 12/16/18 18:03 Source of Information: Reports: Patient History Limitations: Reports: No Limitations - History of Present Illness INITIAL COMMENTS - FREE TEXT/NARRATIVE: 43 y.o.w.f with a H/O migraine H/A and an UTI came to the ed due to H/A and and right flank pain, radiating to her groin. Pt was dx'd last week for a UTI for which she was given Bactrim DS without improvement of her symptoms. She has bi temporal headache with nausea as well,. It is the worst headache ever. No Trauma. No vomiting. Pt did not take any pain meds PHTHALIC ACID PURIFIER. No CP, No SOB or any other acute med issues. BP 128/84 Pulse 90 RR 18 Pulse ox 97% on RA Temp 36.8 Onset Date: 12/10/18 Onset Time: 08:00 Duration: Week(s):, Intermittent Location: Reports: Back, Pelvis, Other (headache) Quality: Reports: Dull, Same as Previous Episode Severity: Moderate Improves with: Reports: None Worsens with: Reports: None Context: Reports: Other Associated Symptoms: Reports: Other (bactrimDS) Lower abdomen & L sided headache Pain Score (Numeric/FACES): 8 - Related Data Allergies Allergy/AdvReac Type Severity Reaction Status Date / Time amitriptyline Allergy Vomiting Verified 12/16/18 18:54 cefuroxime axetil Allergy Vomiting Verified 12/16/18 18:54 [From Ceftin] lidocaine Allergy Paralysis Verified 12/16/18 18:54 morphine Allergy Vomiting Verified 12/16/18 18:54 prochlorperazine Allergy Anxiety Verified 12/16/18 18:54 [From Compazine] prochlorperazine edisylate Allergy Anxiety Verified 12/16/18 18:54 [From Compazine] prochlorperazine maleate Allergy Anxiety Verified 12/16/18 18:54 [From Compazine] Home Meds: Home Meds Gabapentin [Neurontin] 900 mg PO BID 11/25/16 [History] OLANZapine [ZyPREXA] 20 mg PO BEDTIME 11/25/16 [History] Ondansetron [Zofran] 4 mg PO Q8H PRN 11/25/16 [History] QUEtiapine [SEROquel] 200 mg PO BEDTIME 11/25/16 [History] SUMAtriptan [Imitrex] 0.5 ml SQ ASDIRECTED PRN 11/25/16 [History] Topiramate 200 mg PO BID 11/25/16 [History] ALPRAZolam [Xanax] 1 mg PO TID 04/30/18 [History] Baclofen 10 mg PO TID 10/27/18 [History] Calcium Carbonate/Vitamin D3 [Calcium Carb 500 MG] 1 ea PO BID 10/27/18 [History ] Doxycycline [Vibramycin] 100 mg PO BID 10/27/18 [History] FLUoxetine HCl [Fluoxetine HCl] 40 mg PO BID 10/27/18 [History] Gabapentin [Neurontin] 1,200 mg PO BEDTIME 10/27/18 [History] Multivitamin with Minerals [Multiple Vitamin] 1 ea PO DAILY 10/27/18 [History] Omeprazole 40 mg PO DAILY 10/27/18 [History] Oxybutynin Chloride [Ditropan Xl] 10 mg PO DAILY 10/27/18 [History] Prazosin HCl [Prazosin] 4 mg PO BEDTIME 10/27/18 [History] Triamcinolone Acetonide [Kenalog 0.1% Crm] 1 applic TOP BID PRN 10/27/18 [ History] lamoTRIgine [Lamictal] 100 mg PO DAILY 10/27/18 [History] Sucralfate [Carafate] 1 gm PO QIDACANDBED #120 tablet 10/28/18 [Rx] Acetaminophen [Tylenol Arthritis] 650 mg PO PRN 12/16/18 [History] Aspirin 81 mg PO DAILY 12/16/18 [History] Pantoprazole Sodium [Protonix] 40 mg PO DAILY 12/16/18 [History] predniSONE [Prednisone] 5 mg PO DAILY 12/16/18 [History] Past Medical History HEENT History: Reports: Impaired Vision Other HEENT History: wears glasses Cardiovascular History: Reports: None Respiratory History: Reports: None Gastrointestinal History: Reports: Other (See Below) Other Gastrointestinal History: IBS ulcers Genitourinary History: Reports: Other (See Below) Other Genitourinary History: abnormal cervx pap EYEGLASS MAKER History: Reports: , Other (See Below) Other EYEGLASS MAKER History: total histerectomy Musculoskeletal History: Reports: Back Pain, Chronic, Fibromyalgia, Other (See Below) Other Musculoskeletal History: SHULDER DEBRIDEMENT Neurological History: Reports: Headaches, Chronic, Migraines Psychiatric History: Reports: Addiction, Anxiety, Depression, PTSD Other Psychiatric History: CANNABIS USE MODERATE DEPENDENCE Endocrine/Metabolic History: Reports: Obesity/BMI 30+ Hematologic History: Reports: Anemia Dermatologic History: Reports: Psoriasis - Infectious Disease History Infectious Disease History: Reports: Chicken Pox - Past Surgical History HEENT Surgical History: Reports: None Cardiovascular Surgical History: Reports: None Respiratory Surgical History: Reports: None GI Surgical History: Reports: Appendectomy, Bariatric Procedure, Cholecystectomy , Colonoscopy, Other (See Below) Other GI Surgeries/Procedures: ruptured ulcer has had 5 feeding tubes in past Female Surgical History: Reports: Hysterectomy Musculoskeletal Surgical History: Reports: ORIF Other Musculoskeletal Surgeries/Procedures:: LEFT ANKLE ORIF 2012,. RIGH KNEE ARTHROSCOPY 2017 Social & Family History - Family History Family Medical History: Noncontributory - Caffeine Use Caffeine Use: Reports: Coffee ED ROS GENERAL - Review of Systems Review Of Systems: See Below Constitutional: Reports: No Symptoms HEENT: Reports: No Symptoms Respiratory: Reports: No Symptoms Cardiovascular: Reports: No Symptoms Endocrine: Reports: No Symptoms GI/Abdominal: Reports: No Symptoms : Reports: Dysuria, Flank Pain Musculoskeletal: Reports: No Symptoms Skin: Reports: No Symptoms Neurological: Reports: Headache Psychiatric: Reports: No Symptoms Hematologic/Lymphatic: Reports: No Symptoms Immunologic: Reports: No Symptoms ED EXAM, GENERAL - Physical Exam Exam: See Below Exam Limited By: No Limitations General Appearance: Alert, WD/WN, Mild Distress, Obese Eye Exam: Bilateral Eye: Normal Inspection Ears: Normal External Exam Ear Exam: Bilateral Ear: Auricle Normal Nose: Normal Inspection, Normal Mucosa, No Blood Throat/Mouth: Normal Lips, Normal Voice, No Airway Compromise Head: Atraumatic, Normocephalic Neck: Normal Inspection, Supple, Non-Tender, Full Range of Motion Respiratory/Chest: No Respiratory Distress, Lungs Clear, Normal Breath Sounds Cardiovascular: Normal Peripheral Pulses, Regular Rate, Rhythm, No Edema, No Gallop Peripheral Pulses: 1+: Femoral (L) GI/Abdominal: Normal Bowel Sounds, Soft, No Organomegaly, Pelvis Stable, Tender (right flank) (Female) Exam: Deferred Rectal (Female) Exam: Deferred Back Exam: Normal Inspection, Full Range of Motion Extremities: Normal Inspection, Normal Range of Motion Neurological: Alert, Oriented, CN II-XII Intact, Normal Cognition, Normal Gait Psychiatric: Normal Affect, Normal Mood Skin Exam: Warm, Dry, Intact, Normal Color, No Rash Lymphatic: No Adenopathy Course - Vital Signs Text/Narrative:: 43 y.o.w.f with a H/O migraine H/A and an UTI came to the ed due to H/A and and right flank pain, radiating to her groin. Pt was dx'd last week for a UTI for which she was given Bactrim DS without improvement of her symptoms. She has bi temporal headache with nausea as well,. It is the worst headache ever. No Trauma. No vomiting. Pt did not take any pain meds PHTHALIC ACID PURIFIER. No CP, No SOB or any other acute med issues. BP 128/84 Pulse 90 RR 18 Pulse ox 97% on RA Temp 36.8 PE: WNWD W F with right flank pain and H/A Imaging: CT abd/pelvis: NAD, possible gastritis as per RAD CT Head: NAD Labs: CBC, BMP and UA normal BUN/Cr ration was 8.0, however. Impression: Migraine H/A, H/O UTI Thx: Zofran, Reglan, Imitrex, Toradol, Vistaril, DHE 45, NS. Reexam: Pt's symptoms improved and she was ready/requested to be discharged Plan: D/C with instructions Last Recorded V/S: Last Vital Signs Temp 36.8 C 12/16/18 17:57 Pulse 90 12/16/18 17:57 Resp 18 12/16/18 17:57 BP 128/84 12/16/18 17:57 Pulse Ox 97 12/16/18 17:57 - Orders/Labs/Meds Orders: Active Orders 24 hr Category Date Time Status Abdomen Pelvis wo Cont [CT] Stat Exams 12/16/18 18:04 Taken Head wo Cont [CT] Stat Exams 12/16/18 20:39 Taken Peripheral IV Insertion Adult [OM.PC] Routine Oth 12/16/18 18:17 Ordered Labs: Laboratory Tests 12/16/18 12/16/18 12/16/18 Range/Units 18:10 18:10 18:20 WBC 10.3 (4.5-12.0) X10-3/uL RBC 4.34 (3.23-5.20) x10(6)uL Hgb 12.4 (11.5-15.5) g/dL Hct 37.3 (30.0-51.3) % MCV 86.1 (80-96) fL MCH 28.6 (27.7-33.6) pg MCHC 33.2 (32.2-35.4) g/dL RDW 15.5 (11.5-15.5) % Plt Count 266 (125-369) X10(3)uL MPV 8.7 (7.4-10.4) fL Neut % (Auto) 61.0 (46-82) % Lymph % (Auto) 29.7 (13-37) % [place] % (Auto) 7.8 (4-12) % Eos % (Auto) 1 (1.0-5.0) % Baso % (Auto) 0 (0-2) % Neut # (Auto) 6.3 (1.6-8.3) # Lymph # (Auto) 3.1 (0.6-5.0) # [place] # (Auto) 0.8 (0.0-1.3) # Eos # (Auto) 0.1 (0.0-0.8) # Baso # (Auto) 0.0 (0.0-0.2) # Sodium 141 (135-145) mmol/L Potassium 3.8 (3.5-5.3) mmol/L Chloride 106 (100-110) mmol/L Carbon Dioxide 22 (21-32) mmol/L BUN 8 (7-18) mg/dL Creatinine 1.0 (0.55-1.02) mg/dL Est Cr Clr Drug Dosing TNP Estimated GFR (MDRD) > 60 (>60) BUN/Creatinine Ratio 8.0 L (9-20) Glucose 85 (80-116) mg/dL Calcium 9.0 (8.6-10.2) mg/dL Urine Color Yellow (YELLOW) Urine Appearance Clear (CLEAR) Urine pH 7.0 H (5.0-6.5) Ur Specific [place] 1.010 (1.010-1.025) Urine Protein Negative (NEGATIVE) mg/dL Urine Glucose (UA) Normal (NORMAL) mg/dL Urine Ketones Negative (NEGATIVE) mg/dL Urine Occult Blood Negative (NEGATIVE) Urine Nitrite Negative (NEGATIVE) Urine Bilirubin Negative (NEGATIVE) Urine Urobilinogen Normal (NEGATIVE) mg/dL Ur Leukocyte Esterase Negative (NEGATIVE) Urine RBC 0-5 (0-5) Urine WBC 0-5 (0-5) Ur Squamous Epith Cells Few H (NS,R,O) Urine Bacteria Few H (NS) Meds: Medications Discontinued Medications Generic Name Dose Route Start Last Admin Trade Name Freq PRN Reason Stop Dose Admin Dihydroergotamine Mesylate 1 mg 12/16/18 20:40 12/16/18 20:55 Dhe 45 SUBCUT 12/16/18 20:41 1 mg ONETIME ONE Administration Hydroxyzine HCl 50 mg 12/16/18 20:20 12/16/18 20:25 Vistaril IM 12/16/18 20:21 50 mg ONETIME ONE Administration Sodium Chloride 1,000 mls @ 999 mls/hr 12/16/18 22:38 12/16/18 18:35 Normal Saline IV 12/16/18 23:38 999 mls/hr .BOLUS ONE Administration Ketorolac Tromethamine 30 mg 12/16/18 18:03 12/16/18 18:21 Toradol IVPUSH 12/16/18 18:04 30 mg ONETIME ONE Administration Metoclopramide HCl 10 mg 12/16/18 19:41 12/16/18 19:48 Reglan IVPUSH 12/16/18 19:42 10 mg ONETIME ONE Administration Ondansetron HCl 8 mg 12/16/18 18:03 12/16/18 18:17 Zofran IVPUSH 12/16/18 18:04 8 mg ONETIME ONE Administration Sodium Chloride 10 ml 12/16/18 18:17 12/16/18 19:50 Saline Flush FLUSH 10 ml ASDIRECTED PRN Administration Keep Vein Open Sumatriptan Succinate 6 mg 12/16/18 19:41 12/16/18 19:48 Imitrex SUBCUT 12/16/18 19:42 6 mg ONETIME ONE Administration Departure - Departure Time of Disposition: 22:09 Disposition: Home, Self-Care 01 Condition: Good Clinical Impression: Migraine headache without aura Qualifiers: Status migrainosus presence: without status migrainosus Intractability: not intractable Qualified Code(s): G43.009 - Migraine without aura, not intractable , without status migrainosus - Discharge Information Instructions: Nausea, Adult, Recurrent Migraine Headache, [id number] Referrals: Rosmery Valverde PA-C [Primary Care Provider] - Forms: ED Department Discharge Additional Instructions: Please follow up with your PMD, please cont your current meds, please come back if your symptoms get worse acutely - My Orders Last 24 Hours: My Active Orders 12/16/18 18:04 Abdomen Pelvis wo Cont [CT] Stat 12/16/18 18:17 Peripheral IV Insertion Adult [OM.PC] Routine 12/16/18 20:39 Head wo Cont [CT] Stat - Assessment/Plan Last 24 Hours: My Active Orders 12/16/18 18:04 Abdomen Pelvis wo Cont [CT] Stat 12/16/18 18:17 Peripheral IV Insertion Adult [OM.PC] Routine 12/16/18 20:39 Head wo Cont [CT] Stat
[2018-12-16] MEDS ORDERED: hydrOXYzine HCl 50 MG/ML SDV IM ONE (20:20)
[2018-12-16] MEDS ORDERED: Dihydroergotamine 1 MG/ML SDV SUBCUT ONE (20:40)
[2018-12-16] MEDS ORDERED: Sodium Chloride 0.9% 1,000 ML IV ONE (22:38)
--- NOTE | 2018-12-17 08:38 | CT ---
INDICATION: Right flank pain and fever. CT ABDOMEN AND PELVIS WITHOUT CONTRAST: Spiral 2.5 mm axial sections were obtained through the abdomen and pelvis with sagittal and coronal reconstructions, 12/16/18, and compared with 01/04/17. Total exam DLP = 1, 607.60 mGy-cm. There are some heavy markings in the lingula, which may represent minimal fibrosis. No definite active infiltrate or effusion was seen in the lower lung gautam and pleural spaces visualized. The heart was normal in size. No pericardial effusion was seen. The gallbladder was absent compatible with history of its removal with clips at the cystic duct. The common bile duct was normal in caliber for a post cholecystectomy patient at approximately 11 mm. The liver, spleen, pancreas, adrenals, and kidneys appeared to be normal. No evidence of obstructive uropathy or renal calcinosis was seen. No retroperitoneal mass was seen. Evidence of gastric surgery is seen. The appendix is absent, compatible with history of its removal. The uterus is absent, compatible with history of hysterectomy. Multiple loops fairly extensively, especially in the lower abdomen/pelvis are noted, filled with fluid with some air fluid levels, raising question of a process such as gastroenteritis. Mechanically obstructive process is not strongly suspected at this time. Followup studies may be warranted in that regard, however. Urinary bladder wall is minimally prominent, which could be on the basis of cystitis but should be correlated clinically. No additional organomegaly, mass lesions, or free fluid collections were identified in the abdomen or pelvis. Degenerative changes are noted at the L3-4 disk space with hypertrophic lipping and narrowing of the disk space. There also is narrowing of the L4-5 disk space with mild hypertrophic changes there. IMPRESSION: 1. Findings suspicious for gastroenteritis - correlate clinically. 2. Degenerative changes and disk disease L3-4 through L4-5. 3. Postsurgical for hysterectomy, appendectomy, gastric sleeve surgery, and cholecystectomy. 4. Slight thickening of the wall of the urinary bladder, which could be on the basis of mild cystitis but should be correlated clinically. Report was called to Dr. Johnson at 1905 hours on 12/16/18. [facility]
== END 2018-12-16 22:20 | disposition home or self-care (01) ==
LOC: FB.ED 17:56
DX: G43.009 Migraine without aura, not intractable, without status migrainosus (principal); R10.9 Unspecified abdominal pain; F41.9 Anxiety disorder, unspecified; F32.9 Major depressive disorder, single episode, unspecified; F43.10 Post-traumatic stress disorder, unspecified; E66.9 Obesity, unspecified; Z88.8 Allergy status to other drugs, medicaments and biological substances; Z88.6 Allergy status to analgesic agent; Z79.899 Other long term (current) drug therapy; Z79.82 Long term (current) use of aspirin; Z90.710 Acquired absence of both cervix and uterus; Z90.49 Acquired absence of other specified parts of digestive tract; Z68.34 Body mass index [BMI] 34.0-34.9, adult
CPT/HCPCS: 70450; 74176; 80048; 81001; 85025; 96361; 96372; 96374; 96375; 99284; J1110; J1885; J2405; J2765; J3030; J3410; J7030